=== PATIENT | male | born 1950 | race Caucasian/White ===

== ENCOUNTER 2018-03-02 13:22 | Outpatient (REF) | payer MEDICARE, OTHER, SELFPAY ==
[2018-03-03 10:17] LABS: PSA, Screening 0.7 ng/ml (0-4.5)
== END 2018-03-02 13:42 ==
LOC: NCHCN 13:22
PROVIDERS: PCP Nurse Practitioner Family; Visit Provider Nurse Practitioner Family
DX: R19.7 Diarrhea, unspecified (principal); F52.21 Male erectile disorder; Z12.5 Encounter for screening for malignant neoplasm of prostate
CPT/HCPCS: 84153

== ENCOUNTER → 2018-03-16 09:08 | Outpatient (BNVA) | payer MEDICARE, OTHER, SELFPAY | PROVIDERS: PCP Nurse Practitioner Family; Referring Provider Nurse Practitioner Family; Visit Provider Nurse Practitioner Gerontology | DX: N52.9 Male erectile dysfunction, unspecified (principal); N40.2 Nodular prostate without lower urinary tract symptoms | CPT/HCPCS: 99204 ==

== ENCOUNTER 2018-12-07 10:39 | Outpatient (CLI) | payer MEDICARE, OTHER, SELFPAY ==
--- NOTE | 2018-12-07 10:38 | DI.RAD_ITS ---
SYMPTOMS/DIAGNOSIS: RT SHOULDER PAIN AND WEAKNESS RIGHT SHOULDER: Three views. There are moderate hypertrophic changes at the acromioclavicular joint. The glenohumeral joint is well maintained. The bones are intact and normally mineralized. The soft tissues are unremarkable. 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
== END 2018-12-07 10:59 ==
PROVIDERS: PCP Nurse Practitioner Family; Referring Provider Nurse Practitioner Family; Visit Provider Student in an Organized Health Care Education/Training Program
DX: M25.511 Pain in right shoulder (principal); M89.311 Hypertrophy of bone, right shoulder; M75.101 Unspecified rotator cuff tear or rupture of right shoulder, not specified as traumatic
CPT/HCPCS: 99203; 99214; 73030

== ENCOUNTER 2018-12-19 01:55 | Outpatient (CLI) | payer MEDICARE, OTHER, SELFPAY ==
--- NOTE | 2018-12-19 09:45 | DI.MRI_ITS ---
SYMPTOM/DIAGNOSIS: RT SHOULDER PAIN, WEAKNESS, M25.511, S/P FALL, DECREASED RANGE OF MOTION RIGHT SHOULDER MRI: Comparison is made with plain films dated 12/07/18. Proton density and fat suppressed T 2 axial and coronal and T 1 and fat suppressed T 2 sagittal sequences were performed. There is spurring from the AC joint which appears to mildly impinge on the anterior aspects of the distal supraspinatus tendon. There is a small amount of fluid in the subacromial subdeltoid bursa. There is thickening and high signal in the distal infraspinatus tendon. There is a full thickness tear of the infraspinatus tendon with retraction of approximately 10 mm. There is also thickening of the distal supraspinatus tendon in the mid to posterior portion without definite tear. The subscapularus and teres minor tendons appear intact. No labral defects are identified. There is spurring and subchondral cysts at the greater tuberosity. There is also spurring at the lesser tuberosity. There is a small amount of fluid in the subcoracoid bursa. IMPRESSION: Full thickness tear with retraction of the infraspinatus tendon. Supraspinatus tendinosis.
== END 2018-12-19 02:15 ==
PROVIDERS: PCP Nurse Practitioner Family; Visit Provider Student in an Organized Health Care Education/Training Program
DX: M25.511 Pain in right shoulder (principal); S46.011A Strain of muscle(s) and tendon(s) of the rotator cuff of right shoulder, initial encounter; M75.81 Other shoulder lesions, right shoulder
CPT/HCPCS: 73221

== ENCOUNTER → 2018-12-21 08:48 | Outpatient (BNVA) | payer MEDICARE, OTHER, SELFPAY | PROVIDERS: PCP Nurse Practitioner Family; Referring Provider Nurse Practitioner Family; Visit Provider Student in an Organized Health Care Education/Training Program | DX: S46.011A Strain of muscle(s) and tendon(s) of the rotator cuff of right shoulder, initial encounter (principal); X58.XXXA Exposure to other specified factors, initial encounter | CPT/HCPCS: 99213 ==

== ENCOUNTER 2019-02-16 09:53 | Outpatient (CLI) | payer MEDICARE, OTHER, SELFPAY ==
--- NOTE | 2019-02-16 08:55 | W.PREOPHP ---
Date of service: 02/16/19 Assessment and Plan (1) Right rotator cuff tear: Current visit: No Status: Acute Right arthroscopic rotator cuff repair. Details of surgery were discussed with patient as well as risks and pertinent anatomy. All questions were answered. Qualifiers: Rotator cuff tear extent: unspecified tear extent Rotator cuff tear trauma status: unspecified whether traumatic Qualified Code(s): M75.101 - Unspecified rotator cuff tear or rupture of right shoulder, not specified as traumatic History of Present Illness Chief Complaint: Right shoulder injury Narrative: Alex is a 69-year-old male who comes in today for a preop history and physical for a right rotator cuff repair. He had an injury a few months ago when she fell landing directly on his right shoulder. Since then he has had shoulder pain especially when he reaches away from his body and up overhead. He also has pain at night which keeps him from sleeping. He is a pretty active person, so he came in for evaluation, and after this evaluation by Dr. Trejo it was determined that he had a rotator cuff tear on the right side. He has had an MRI which showed the rotator cuff tear as well as some DJD of the AC joint. He has tried conservative treatment including exercise and anti-inflammatories, but his weakness and pain simply have not gotten any better. At this time Dr. Trejo offers a right rotator cuff repair and distal clavicle excision, and Alex agrees with this plan and is anxious to proceed. Pertinent Surgical Information Alex has had a TIA in the past, but after testing was instructed that he did not have a CVA. Patient denies history of hypertension, CVA, CT, angina, asthma, COPD, renal or liver disorders, hepatitis, bleeding disorders, diabetes, immune or thyroid disorders. No complications from anesthesia. Review of Systems Constitutional Denies fever(s) ENT Denies dizziness and Denies sore throat Cardiovascular Denies chest pain, Denies palpitations and Denies dyspnea Respiratory Denies cough and Denies dyspnea Gastrointestinal Denies abdominal pain, Denies melena, Denies hematochezia, Denies diarrhea, Denies nausea and Denies vomiting Genitourinary Denies hematuria and Denies dysuria Neurologic Denies dizziness Endocrine Denies palpitations [facility] Social History Smoking/Tobacco Use Status: Former Tobacco Use Drug use: Occasionally Meds Home Medications Medication Instructions Recorded Confirmed Type tadalafil 5 mg tablet 5 mg PO ONCE PRN 03/16/18 12/21/18 History Allergies Allergy/AdvReac Type Severity Reaction Status Date / Time No Known Allergies Allergy Verified 02/16/19 09:04 Exam [facility] Head: normocephalic and atraumatic General nose exam: no nasal discharge Throat: uvula midline and no uvular edema Other: soft palate rises symmetrically, no erythema Eyes Conjunctivae: conjunctivae normal Sclera: sclerae normal Pupils: PERRL Resp Effort & Inspection: normal respiratory effort Auscultation: clear to auscultation bilaterally and no wheezes Cardio Rate: regular rate Rhythm: regular rhythm Heart Sounds: S1 normal, S2 normal and no murmurs GI Palpation: soft, no hepatosplenomegaly and nontender Auscultation: normal bowel sounds
== END 2019-02-16 10:13 ==
PROVIDERS: PCP Nurse Practitioner Family; Visit Provider Student in an Organized Health Care Education/Training Program
DX: M75.101 Unspecified rotator cuff tear or rupture of right shoulder, not specified as traumatic (principal); Z01.818 Encounter for other preprocedural examination
CPT/HCPCS: NC

== ENCOUNTER 2019-03-07 06:25 | Day surgery (SDC) | payer MEDICARE, OTHER, SELFPAY ==
[2019-03-07] VITALS (8 sets, daily range): BP systolic 114–147; BP diastolic 58–112; PULSE 52–74; RESP 10–20; TEMP 36–36.6; O2SAT 97–99
[2019-03-07] MEDS: Lactated Ringers 1,000 ML 80 ML IV ×2 (07:00→10:02)
--- NOTE | 2019-03-07 07:11 | PDOC.DSDIS_ITS ---
Discharge Plan Disposition Patient Disposition: HOME Condition: Good Discharge Details Reason For Visit: R RTC Tear Attending Provider: Alex Trejo Primary Care Provider: Mi Batista Home Meds and New Rx's Prescriptions: New acetaminophen 500 mg tablet 1,000 mg PO Q8H PRN (Reason: pain) Qty: 60 RF: 3 ibuprofen 600 mg tablet 600 mg PO TID PRNQty: 60 RF: 3 hydromorphone 2 mg tablet 2 mg PO Q6H PRN (Reason: pain) Qty: 10 RF: 0 Continued tadalafil [Cialis] 5 mg tablet 5 mg PO ONCE PRNRF: 0 Discharge Instructions Stand Alone Forms: Maya Silva w/RCR Referrals: Alex Trejo MD [ [facility] STAFF PHYSICIAN] - Equipment/Supplies: Sling Activity:: Stay in sling except for hygiene and pendulum Remove Dressings/Wound Care:: 72 hours Shower/Bathe:: 72 hours Diet:: As Tolerated Discharge Orders Discharge Orders: Discharge Order (Routine); Ordered 03/07/19 Ordered By: Alex Trejo DS: Diagnosis Discharge Diagnosis (1) Right rotator cuff tear: Status: Acute (2) Arthralgia of right acromioclavicular joint: Status: Acute
[2019-03-07] MEDS: Bupivacaine 0.5% Pres-Free 30 ML VIAL (07:24)
[2019-03-07] MEDS: Bupivacaine LIPOSOME/PF 133 MG/10 ML VIAL IJ (07:24)
[2019-03-07] MEDS: ceFAZolin 2 GM/50 ML BAG IVPB (07:39)
[2019-03-07] MEDS: Bupivacaine 0.25% Pres-Free 30 ML VIAL (09:20)
--- NOTE | 2019-03-08 06:26 | W.PM.OP ---
Date of service: 03/07/19 Time of Service: 10:26 Operative Note DATE OF PROCEDURE: 03/07/19 PRE-OP DIAGNOSIS: Right AC joint arthritis, right rotator cuff tear POST-OP DIAGNOSIS: other (Right AC arthritis, right rotator cuff tear, right biceps tendon tear) PROCEDURE: - Mini-Open Distal Clavicle Excision - Arthroscopic Rotator Cuff Repair - Sub-pectoral biceps tenodesis - Subacromial Debridement with Acromioplasty SURGEON: Alex Trejo SIGNS AND DISPLAYS SALESPERSON: Pradip He ANESTHESIA: GETA and regional ESTIMATED BLOOD LOSS: 0 PATHOLOGY: none sent COMPLICATIONS: None Patient was transported to: PACU Patient's condition: stable Indications: I have seen Alex in clinic for a painful shoulder. Pathology was confirmed based on MRI and exam findings. Nonoperative measures were exhausted but disability and pain persisted. I discussed shoulder arthroscopy and procedures. I reviewed the risks of the procedures to include, but not limited to, bleeding, infection, pain, stiffness, damage to nerves or vessels, recurrence, hardware failure, blood clot. Despite these risks, the patient elected to proceed. Findings: There were signs of arthrosis of the distal clavicle; a 1cm wedge was resected A diagnostic arthroscopy was performed with the following findings: - Glenohumeral Joint: No significant arthritic change appreciated - Labrum: Some fraying seen anteriorly superiorly but no true detachment and no true tear - Cuff: Complete tear of the majority of supraspinatus and infraspinatus. Partial tearing of the upper subscapularis longitudinally without detachment from the tuberosity. - Biceps: Severe tearing from the level of the groove all the way to the anchor of the biceps tendon - Subacromial: Notable inflammatory change with complete rotator cuff tear appreciated. Large anterolateral spur Procedure Description: Alex was greeted in the preoperative holding area where the correct side was identified and marked. The consent was reviewed with the patient and signed. The history and physical was updated. All questions were answered. He was taken back to the PACU for administration of an intrascalene nerve block. He was then taken to the operating room. The patient was placed into the supine position on the operating room table. A general anesthetic was administered. Alex was then positioned in the beach chair position. All bony prominences were well padded. The head was placed in a foam head waiter/waitress in a neutral position. Prophylactic antibiotics in the form of Cefazolin were administered. The right arm/shoulder was then prepped with Chloraprep and draped in a standard fashion with stockinette and shoulder drape. A timeout to confirm correct identity, side and site, procedure, allergies, anesthesia, and medical concerns was performed. The arm was placed into a pneumatic guzmán, SPIDER2. The distal clavicle was approached through a 2 and half centimeter incision within Milan's lines. This was made overlying the AC joint. The skin was incised sharply. The deeper tissues dissected with electrocautery. The clavipectoral fascia was identified and incised longitudinally off of the distal clavicle and onto the acromion. This was reflected subperiosteally to expose the distal clavicle and the AC joint. With adequate exposure a 1 cm bony resection was made using an oscillating saw. This is angled posteriorly to avoid any posterior impingement. Once it was fully resected, it was inspected to make sure it is of adequate width. A rasp was used to smooth the bony edges inferiorly and posteriorly primarily. A small amount of bone wax was placed on the end of the distal clavicle. The wound was thoroughly irrigated. There is no active bleeding. The clavipectoral fascia was then closed with a 0 Vicryl in a watertight fashion. The subcutaneous tissues were then reapproximated with a 2-0 Vicryl. The shoulder arthroscopy was then performed. The glenohumeral joint was injected with 20 cc of normal saline with good flow back. A standard posterior portal was made and the joint was entered atraumatically with a blunt arthroscope. Once inside we had good visualization of the structures of the glenohumeral joint. An anterior portal was established with spinal needle localization. A 6.5 mm cannula was inserted. A probe was then used to perform a diagnostic arthroscopy. There is noted to be no significant cartilage damage of the glenoid humeral joint. The labrum was intact anteriorly and posteriorly with mild fraying. There were no loose bodies in the inferior pouch. The superior rotator cuff was completely torn with a portion of the anterior supra spinatus still attached. The biceps tendon had significant tearing from the level to groove all the way through the anchor. The subscapularis had what appeared to be a longitudinal tear of the very uppermost portion of the subscapularis. It was investigated for multiple angles and multiple arm positions. It did not pull off of the lesser tuberosity nor was there a free edge not attached. The bulk of the subscapularis was still intact and therefore no repair was performed. Using letter cautery, the biceps tendon was detached from its anchor for later tenodesis. Using letter cautery and shaver perform debridement of the frayed labrum as well as the torn rotator cuff for later reattachment. The biceps tenodesis was then performed. With the arm and some slight external rotation abduction pectoralis major tendon was identified. A 2 cm incision was made overlying the insertion to the humerus. Sharp dissection was carried onto the skin. Blunt dissection was carried down to the fascia the biceps musculature. This was entered with a tenotomy scissors. The biceps groove was palpable and the biceps tendon was palpable. It was withdrawn from the wound using Allis clamp and finger dissection. Once the biceps tendon was out of the arm the biceps groove was prepared using a rasp. A Mitek Lupine anchor was inserted into the biceps groove at the level of the pectoralis major insertion. This was tested to make sure had excellent fixation into the bone. Using a free needle I then placed a locking Krak?w stitch and each side of the biceps tendon using one limb from each suture at the level of the muscular tendinous junction and moving proximally. Excess tendon was then cut. Using the free suture limb I then shuttled the tendon down to the prepared surface of the humerus. It laid flat against the humerus. It was at the level of the pectoralis major tendon. The suture limbs were then tied. The wound was irrigated. The subcutaneous tissue was reapproximated with a 2-0 Vicryl. The arthroscope was then inserted into the subacromial space. The 6.5 mm cannula was placed lateral to the CA ligament. 2 lateral portals were established. The anterolateral portal became the working port of the posterior lateral portal became the viewing portal. A complete bursectomy is performed anteriorly, posteriorly, and laterally with electrocautery and shaver. This had excellent exposure of the rotator cuff and the large crescent-shaped tear involving the majority of the supra spinatus and infraspinatus. There was a large anterolateral spur which was addressed after the rotator cuff. Using a shaver I debrided down any remaining bursa and on healthy tissue from the tear. This clearly showed a crescent type tear which was anchored both posteriorly and anteriorly. The undersurface of the torn tendon was also debrided. The footprint was debrided with a shaver to remove any soft tissue and to roughen the bone for bleeding and healing. Using a spinal needle for localization, I placed 2 Medial Row anchors. These were Mitek Healix 4.5 mm anchors. After placing these 2 anchors a total of 4 horizontal mattress sutures were placed within the tendon of the rotator cuff. When these were tightened adequately reduce the rotator cuff tendon down to bone. These were tied with standard knot tying techniques. After they were tied I then placed one suture limb from each suture and 2 Lateral Row anchors. A total of 2 Mitek Healix 4.75 mm knotless anchors were placed laterally to the tuberosity. This created a suture bridge type technique reapproximate the tendon down to the entirety of the footprint. There is excellent reapproximation of the tissue. Suture limbs were cut. There is no exposed footprint. A 5.0 mm je was then inserted from the posterior portal. The anterolateral corner of the acromion was then resected in plane with the posterior slope of the acromion. There was quite a significant spike of the anterolateral acromion. The scope equipment was removed from the shoulder. Excess fluid was evacuated. The portal sites were closed with 3-0 Monocryl. The wounds were dressed with Steri-Strips, 4 x 4's, ABDs, Medipore tape. A sling was applied. The patient tolerated the procedure well and was returned to the Same Day Surgery area in a stable condition suffering no known complication.
== END 2019-03-07 13:09 | disposition home or self-care (01) ==
PROVIDERS: PCP Nurse Practitioner Family; Visit Provider Student in an Organized Health Care Education/Training Program
PROC: (CPT 29827; principal; 2019-03-07 07:30)
PROC: (CPT 23120; 2019-03-07 07:30)
PROC: (CPT 23430; 2019-03-07 07:30)
DX: S46.011A Strain of muscle(s) and tendon(s) of the rotator cuff of right shoulder, initial encounter (principal); S46.211A Strain of muscle, fascia and tendon of other parts of biceps, right arm, initial encounter; M19.011 Primary osteoarthritis, right shoulder; G89.18 Other acute postprocedural pain; M25.511 Pain in right shoulder; W19.XXXA Unspecified fall, initial encounter
CPT/HCPCS: 23430; 29827; 29826; 23120; 76942; J0690; J1100; J1885; J2250; J2405; J3010; L3650; L3670

== ENCOUNTER → 2019-03-20 09:46 | Outpatient (BNVA) | payer MEDICARE, OTHER, SELFPAY | PROVIDERS: PCP Nurse Practitioner Family; Referring Provider Nurse Practitioner Family; Visit Provider Student in an Organized Health Care Education/Training Program | DX: Z47.89 Encounter for other orthopedic aftercare (principal) ==

== ENCOUNTER → 2019-04-17 07:52 | Outpatient (BNVA) | payer MEDICARE, OTHER, SELFPAY | PROVIDERS: PCP Nurse Practitioner Family; Referring Provider Nurse Practitioner Family; Visit Provider Student in an Organized Health Care Education/Training Program | DX: Z47.89 Encounter for other orthopedic aftercare (principal) ==

== ENCOUNTER → 2019-07-13 09:17 | Outpatient (BNVA) | payer MEDICARE, OTHER, SELFPAY | PROVIDERS: PCP Nurse Practitioner Family; Referring Provider Nurse Practitioner Family; Visit Provider Student in an Organized Health Care Education/Training Program | DX: M25.511 Pain in right shoulder (principal); Z47.89 Encounter for other orthopedic aftercare | CPT/HCPCS: 99212; 99213 ==

== ENCOUNTER 2019-08-31 02:56 | Outpatient (CLI) | payer MEDICARE, OTHER, SELFPAY ==
[2019-08-31 13:08] LABS: HCT 44.3 % (40.0-50.0); HGB 14.9 g/dL (13.5-17.5); Mean Corp. HGB Concentration 33.6 g/dL (32.0-36.0); Mean Corpuscular Hemoglobin 30.8 pg (27.0-33.0); Mean Corpuscular Volume 91.5 fL (80-95); Mean Platelet Volume 9.8 fL (8.0-11.0); Platelet Count 293 x1000/uL (130-400); RBC 4.84 m/cumm (4.50-6.00); RBC Distribution Width 12.8 % (11.8-14.1)
[2019-08-31 14:15] LABS: Anion Gap 7.9 mmol/L (3-11); BUN 24 mg/dL (7-18); C-Reactive Protein 0.47 mg/dL (0.0-0.3); CO2 29.1 mmol/L (21.0-32.0); CREATININE 1.16 mg/dL (0.70-1.30); Calcium 9.2 mg/dL (8.5-10.1); Chloride 101 mmol/L (98-107); Glucose 126 mg/dL (74-106); Potassium 4.5 mmol/L (3.5-5.1); Sodium 138 mmol/L (136-145)
== END 2019-08-31 03:16 ==
PROVIDERS: PCP Nurse Practitioner Family; Visit Provider Family Medicine
DX: R05 Cough (principal)
CPT/HCPCS: 36415; 80048; 85027; 86140

== ENCOUNTER 2019-09-01 03:23 | Outpatient (CLI) | payer MEDICARE, OTHER, SELFPAY ==
--- NOTE | 2019-09-01 14:24 | DI.CT_ITS ---
EXAM: CT CHEST W CLINICAL HISTORY: COUGH R05 TECHNIQUE: Post IV contrast COMPARISON: CHEST 2 VIEWS PA,LAT from 10/22/2010 FINDINGS: The heart size is normal. The aorta is normal in diameter. No pleural or pericardial effusions are seen. No mass or adenopathy is seen. No infiltrates are identified. There are increased interstitial markings seen peripherally greatest in the lower lobes. There are a few scattered calcifications. Th e tracheobronchial tree is unremarkable. No suspicious bony abnormalities are identified. The visuali zed portions of the upper abdominal organs are unremarkable. IMPRESSION: Moderate interstitial disease more prominent in the lower lung montaño.
[2019-09-01] MEDS: Omnipaque 350 MG/ML 100 ML BTL 70 ML IJ (14:25)
[2019-09-01] MEDS: Normal Saline - Diluent 50 ML VIAL IV (14:26)
== END 2019-09-01 03:43 ==
PROVIDERS: PCP Nurse Practitioner Family; Visit Provider Family Medicine
DX: R05 Cough (principal); J84.9 Interstitial pulmonary disease, unspecified
CPT/HCPCS: 71260; J3490

== ENCOUNTER 2019-09-11 01:32 | Outpatient (CLI) | payer MEDICARE, OTHER, SELFPAY ==
--- NOTE | 2019-09-11 | PFT_ITS ---
PULMONARY FUNCTION TEST REPORT PATIENT - Alex Sanz DATE OF SERVICE September 11, 2019 REQUESTING PROVIDER Ale Brock M.D. INTERPRETATION OF STUDY Spirometry shows mild obstructive airways disease with no significant bronchodilator response. LUNG VOLUMES - Lung volumes show no evidence of restriction. DIFFUSION CAPACITY- Mildly reduced even when corrected to alveolar volume. AIRWAY RESISTANCE - Normal. IMPRESSION Mild obstructive airways disease with no significant bronchodilator response. This is associated with mild diffusion defect. Clinical correlation recommended. Cathy Jimenez M.D. BISHOP/ DD - 09/14/19
== END 2019-09-11 01:52 ==
PROVIDERS: PCP Nurse Practitioner Family; Visit Provider Family Medicine
DX: R05 Cough (principal); Z57.39 Occupational exposure to other air contaminants; J98.8 Other specified respiratory disorders
CPT/HCPCS: 94060; 94726; 94729

== ENCOUNTER 2019-11-06 01:39 | Outpatient (CLI) | payer MEDICARE, OTHER, SELFPAY ==
--- NOTE | 2019-11-06 14:15 | DI.CT_ITS ---
EXAM: CT CHEST WO CLINICAL HISTORY: INTERSTITIAL LUNG DISEASE, J84.9 TECHNIQUE: COMPARISON: CT CT CHEST W from 09/01/2019 FINDINGS: CT examination of chest was performed without contrast administration. Supine and prone imaging was obtained. Examination compared to prior study of August 31. Previous examination showed predominant ly peripheral and basilar interstitial diffuse radiodensities and showed calcified granulomata of the left lower lobe posteriorly. Findings on today's examination are essentially unchanged. No new interstitial process, no evident p rogression. No change in appearance of the lungs on prone and supine imaging apart from minimal typi mary dependent appearance changes. There is mild diffuse mosaic attenuation, unchanged from the prior study. No new pulmonary mass. No mediastinal or hilar adenopathy. No pleural effusion or pleural-based mas s. Tracheobronchial tree appears intact. IMPRESSION: No change in predominantly peripheral and basilar pulmonary interstitial radiodensities.
== END 2019-11-06 01:59 ==
PROVIDERS: PCP Nurse Practitioner Family; Visit Provider Internal Medicine
DX: J84.89 Other specified interstitial pulmonary diseases (principal)
CPT/HCPCS: 71250

== ENCOUNTER 2019-11-23 03:35 | Outpatient (CLI) | payer MEDICARE, OTHER, SELFPAY ==
[2019-11-23 13:13] LABS: HCT 42.5 % (40.0-50.0); HGB 14.7 g/dL (13.5-17.5); Mean Corp. HGB Concentration 34.6 g/dL (32.0-36.0); Mean Corpuscular Hemoglobin 31.6 pg (27.0-33.0); Mean Corpuscular Volume 91.4 fL (80-95); Mean Platelet Volume 10.5 fL (8.0-11.0); Platelet Count 246 x1000/uL (130-400); RBC 4.65 m/cumm (4.50-6.00); RBC Distribution Width 13.1 % (11.8-14.1); White Blood Cell Count 7.61 k/cumm (4.4-10.8)
[2019-11-23 14:17] LABS: ALT 21 U/L (16-63); AST 20 U/L (15-37); Albumin 3.6 g/dL (3.4-5.0); Alkaline Phosphatase 39 U/L (46-116); Bilirubin, Direct 0.15 mg/dL (0.00-0.20); Bilirubin, Total 0.5 mg/dL (0.2-1.0); Total Protein 6.5 g/dL (6.4-8.2)
== END 2019-11-23 03:55 ==
PROVIDERS: PCP Nurse Practitioner Family; Visit Provider Internal Medicine
DX: J84.9 Interstitial pulmonary disease, unspecified (principal)
CPT/HCPCS: 36415; 80076; 85027

== ENCOUNTER 2020-12-11 15:57 | Outpatient (REF) | payer MEDICARE, OTHER, SELFPAY ==
[2020-12-11 14:09] LABS: ALT 23 U/L (16-63); AST 17 U/L (15-37); Albumin 3.7 g/dL (3.4-5.0); Alkaline Phosphatase 39 U/L (46-116); Anion Gap 8.7 mmol/L (3-11); BUN 20 mg/dL (7-18); Bilirubin, Total 0.6 mg/dL (0.2-1.0); CO2 27.3 mmol/L (21.0-32.0); Calcium 9.1 mg/dL (8.5-10.1); Chloride 106 mmol/L (98-107); Glucose 139 mg/dL (74-106); Potassium 4.2 mmol/L (3.5-5.1); Sodium 142 mmol/L (136-145); Total Protein 6.8 g/dL (6.4-8.2)
== END 2020-12-11 15:58 | disposition home or self-care (01) ==
LOC: NCHCN 15:57
PROVIDERS: PCP Nurse Practitioner Family; Visit Provider Family Medicine
DX: R79.89 Other specified abnormal findings of blood chemistry (principal); Z00.00 Encounter for general adult medical examination without abnormal findings
CPT/HCPCS: 80053

== ENCOUNTER 2021-01-22 16:11 | Outpatient (REF) | payer MEDICARE, OTHER, SELFPAY ==
[2021-01-22 14:49] LABS: Calculated LDL 149 mg/dL (<100); Cholesterol 236 mg/dL (<200); Glucose 109 mg/dL (74-106); HDL Cholesterol 55 mg/dL (40-60); Triglyceride 161 mg/dL (<150)
[2021-01-22 23:58] LABS: PSA, Screening 1.1 ng/mL (0.0-4.5)
== END 2021-01-22 16:12 | disposition home or self-care (01) ==
LOC: NCHCN 16:11
PROVIDERS: PCP Nurse Practitioner Family; Visit Provider Nurse Practitioner Family
DX: E78.9 Disorder of lipoprotein metabolism, unspecified (principal); F52.21 Male erectile disorder; J84.112 Idiopathic pulmonary fibrosis
CPT/HCPCS: 80061; 82947; 84153

== ENCOUNTER → 2021-02-20 10:30 | Outpatient (BNVA) | payer MEDICARE, OTHER, SELFPAY | PROVIDERS: PCP Nurse Practitioner Family; Referring Provider Nurse Practitioner Family; Visit Provider Student in an Organized Health Care Education/Training Program | DX: M65.341 Trigger finger, right ring finger (principal) | CPT/HCPCS: 20550; 99213; J1030 ==

== ENCOUNTER 2021-02-25 04:02 | Outpatient (CLI) | payer MEDICARE, OTHER, SELFPAY ==
--- NOTE | 2021-02-25 | DI.CT_ITS ---
Exam(s) CT CHEST WO EXAM: CT CHEST WO CLINICAL HISTORY: ILD. TECHNIQUE: Imaging protocol: Axial computed tomography images were obtained and coronal and sagittal reformatted images were created and reviewed. COMPARISON: CT CT CHEST WO from 11/06/2019 FINDINGS: Tracheobronchial tree: Patent where visualized. Pulmonary parenchyma: No consolidation or dominant measurable mass. There is again seen predominantly peripheral interstitial disease bilaterally. It does not appear to have significantly progressed si nce the prior examination. Multiple calcified granuloma are again noted. No noncalcified pulmonary nodules are identified. Mediastinum and Parul: No dominant adenopathy or fluid collection. Pleura: No effusion or pneumothorax. Heart: The heart is not dilated. Minimal coronary artery calcification is noted. No pericardial effu diomedes. Aorta: Thoracic aorta non-dilated. Mild atherosclerosis. Upper abdomen: Unremarkable. Lymph nodes: Within normal limits. Soft tissues: Unremarkable. Bones:Within normal limits. IMPRESSION: Stable interstitial lung disease. No acute pulmonary process. RADIATION DOSE DELIVERED: 530.77mGy.cm Total DLP 530.77mGy.cm Total DLP DATA REPOSITORY: All CT scans at this facility are submitted to the National Radiology Data Registry (NRDR) Dose Index Registry (DIR) with the [employer] [place] [employer] (A[employer]). RADIATION OPTIMIZATION: All CT scans at this facility use at least one of these dose optimization te chniques: automated exposure control; mA and/or kV adjustment per patient size (includes targeted exa ms where dose is matched to clinical indication); or iterative reconstruction.
[2021-02-25] MEDS: Albuterol HFA 18 GM 200 PUFF INH IH (09:17)
[2021-02-25] MEDS: Inhaler, Assist Device 1 EACH MC (09:17)
--- NOTE | 2021-02-25 13:12 | PFT_ITS ---
Date of service: 02/25/21 Time of Service: 08:14 Pulmonary Function Test Result Requesting Provider Dr. Cathy Jimenez Interpretation Spirometry: There is no airflow limitation. There is no significant bronch odilator effect. Lung Volumes: Lung volumes are normal. Diffusion Capacity: There is a slight decrease in diffusion. Airway Pressure: Airways resistance is normal. Impression Normal pulmonary function tests with the exception of a slightly decreased diffusion capacity. Note: When compared to pulmonary function testing completed 09/11/2019 the FEV1 and FVC are essentially unchanged, the lung volumes are unchanged, the diffusion capacity is slightly decreased and the airways resistance is slightly increased. Clinical Correlation therefore is recommended.
== END 2021-02-25 04:03 | disposition home or self-care (01) ==
PROVIDERS: PCP Nurse Practitioner Family; Visit Provider Internal Medicine
DX: J84.9 Interstitial pulmonary disease, unspecified (principal)
CPT/HCPCS: 71250; 94060; 94726; 94729

== ENCOUNTER 2021-06-09 03:47 | Outpatient (CLI) | payer MEDICARE, OTHER, SELFPAY ==
[2021-06-09 16:15] LABS: Source Nasal/Nares
[2021-06-09 23:44] LABS: COVID-19 PCR Negative (Negative)
== END 2021-06-09 03:48 | disposition home or self-care (01) ==
LOC: LBO 03:47
PROVIDERS: PCP Nurse Practitioner Family; Visit Provider Student in an Organized Health Care Education/Training Program
DX: Z20.822 Contact with and (suspected) exposure to COVID-19 (principal); Z01.818 Encounter for other preprocedural examination
CPT/HCPCS: 87635

== ENCOUNTER 2021-06-10 11:09 | Day surgery (SDC) | payer MEDICARE, OTHER, SELFPAY ==
[2021-06-10 11:29] VITALS: BP 129/74; PULSE 57; RESP 16; TEMP 37.2; O2SAT 99
--- NOTE | 2021-06-10 12:13 | W.PM.DSUDISC ---
Discharge Plan Disposition Patient Disposition: HOME Condition: Good Discharge Details Reason For Visit: RRF Trigger Release Attending Provider: Alex Trejo Primary Care Provider: Mi Batista Home Meds and New Rx's Prescriptions: New acetaminophen 500 mg tablet 1,000 mg PO TID Qty: 90 RF: 0 ibuprofen 600 mg tablet 600 mg PO TID PRN (Reason: pain) Qty: 90 RF: 0 Continued sildenafil [Viagra] 100 mg tablet 100 mg PO DAILY PRNRF: 0 Ofev 150 mg capsule 150 mg PO Q12H RF: 0 Discontinued acetaminophen 500 mg tablet 1,000 mg PO Q8H PRN (Reason: pain) Qty: 60 RF: 3 ibuprofen 600 mg tablet 600 mg PO TID PRNQty: 60 RF: 3 Discharge Instructions Stand Alone Forms: Maya Recinos Finger Release Activity:: Activity as Tolerated Remove Dressings/Wound Care:: 48 hours Shower/Bathe:: 48 hours Diet:: As Tolerated Discharge Orders Discharge Orders: Discharge Order (Routine); Ordered 06/10/21 Ordered By: Pradip He DS: Diagnosis Discharge Diagnosis (1) Trigger ring finger of right hand: Status: Acute
[2021-06-10] MEDS: Sodium Bicarbonate 50 MEQ/50 ML VIAL (14:15)
[2021-06-10 14:35] VITALS: BP 134/72; PULSE 61; RESP 16; TEMP 36.9; O2SAT 100
--- NOTE | 2021-06-10 21:13 | W.PM.OP ---
Date of service: 06/10/21 Time of Service: 14:14 Operative Note Operative Note DATE OF PROCEDURE: 06/10/21 PRE-OP DIAGNOSIS: Right Ring Finger Trigger Finger POST-OP DIAGNOSIS: same PROCEDURE: Trigger Finger Release - Right Ring Finger SURGEON: Alex Trejo ANESTHESIA TYPE: Local By Surgeon Refer to Anesthesia Record ESTIMATED BLOOD LOSS: 5 PATHOLOGY: none sent TOURNIQUET TIME: 0 COMPLICATIONS: None Patient was transported to: same day Patient's condition: stable Indications: I have seen Alex in clinic for symptoms of a trigger finger. The catching, clicking, locking, and pain limited function. The diagnosis of trigger finger was evident. The symptoms had not responded to conservative measures. I discussed trigger finger release with the patient. I reviewed the risks of the procedure to include, but not limited to, bleeding, infection, pain, stiffness, incomplete release, damage to nerves or vessels, continued catching, recurrence. Despite these risks, the patient elected to proceed. Findings: There was a thin Dupuytren's cord with a nodule blocking complete access to the A1 ondina so this was resected. Then, the tightened A1 ondina was released. The flexor tendons were inspected and the patient was able to move the finger without any catching, clicking, or locking. Procedure Description: Alex was greeted in the preoperative holding area where the correct side was identified and marked. The consent was reviewed with the patient and signed. All questions were answered. He was taken back to the operating room. The patient was placed into the supine position on the operating room table with the right arm on an arm board. All bony prominences were well padded. No prophylactic antibiotics were administered since this was a clean, elective hand surgical case. The right arm was then prepped with Chloraprep and draped in a standard fashion with stockinette and extremity drape. A timeout to confirm correct identity, side and site, procedure, allergies, anesthesia, and medical concerns was performed. The surgical site was marked as a longitudinal incision directly over the A1 ondina of the involved digit. This was confirmed with palpation during finger flexion. This area, overlying the metacarpal head, was then anesthetized with 1% Lidocaine. The patient tolerated this well and once the anesthetic had setup, the procedure began. A longitudinal incision was made through skin only, approximately 1cm. The deep tissues were dissected bluntly. There was a fascial band at this level with an associated nodule which prevented access to the A1 ondina, so I extended the incision proximally with a Sam incision to remove the nodule and cord overlying this region. With this removed, the flexor tendon sheath was visible. Once the A1 ondina and flexor tendons were identified the soft tissue including neurovascular structures were retracted medially and laterally. There were no crossing structures over the A1 ondina. The proximal edge of the ondina was identified and the ondina was incised with tenotomy scissors. There was a release of the tendons once this was fully released. The tendons were then removed from the wound and inspected. Excess synovium was resected. The tendons were then returned and the patient was asked to move the finger into deep flexion and back to extension. There was no recreation of the pre-operative symptoms. The hand was then once more inspected for any A0 ondina or area of possible constriction. The wound was then irrigated and the skin was closed with a 4-0 Nylon. This was dressed with gauze and a Conform dressing. The patient tolerated the procedure well and was returned to the Same Day Surgery area in a stable condition suffering no known complication.
== END 2021-06-10 14:52 | disposition home or self-care (01) ==
PROVIDERS: PCP Nurse Practitioner Family; Visit Provider Student in an Organized Health Care Education/Training Program
PROC: (CPT 26055; principal; 2021-06-10 15:00)
DX: M65.341 Trigger finger, right ring finger (principal)
CPT/HCPCS: 26055

== ENCOUNTER → 2021-06-19 11:35 | Outpatient (BNVA) | payer MEDICARE, SELFPAY | PROVIDERS: PCP Nurse Practitioner Family; Referring Provider Nurse Practitioner Family; Visit Provider Student in an Organized Health Care Education/Training Program | DX: Z47.89 Encounter for other orthopedic aftercare (principal) ==

== ENCOUNTER 2022-09-01 01:31 | Outpatient (CLI) | payer MEDICARE, OTHER, SELFPAY ==
--- NOTE | 2022-09-01 07:45 | DI.CT_ITS ---
Exam(s) CT CHEST WO EXAM: CT CHEST WO CLINICAL HISTORY: f/u LLL nodule,r91.1. TECHNIQUE: Multi planar reconstructions were performed. CONTRAST MATERIAL: None COMPARISON: CT CT CHEST WO from 02/25/2021 FINDINGS: CHEST: LUNGS: Relatively stable bilateral interstitial located peripherally. Calcified granuloma in the lef t lower lobe again noted measuring 6 millimeters. Also smaller calcified granuloma measuring 2-3 mil limeters, also unchanged. No new lung nodules and no pleural effusions. No new findings in the trac hea and mainstem bronchi. MEDIASTINUM: There is no obvious hilar nor mediastinal adenopathy. Visualized thyroid unremarkable.No obvious axillary adenopathy CARDIAC: Heart size is normal. There is no pericardial effusion.Caliber of the thoracic aorta is wit hin normal limits. VISUALIZED UPPER ABDOMEN:No adrenal masses. OSSEOUS: No significant osseous lesions.. IMPRESSION: 1. Stable without significant change compared to prior CT scan of 02/25/2021. 2. Stable interstitial disease. No new findings. No pleural effusions nor intrathoracic adenopathy. RADIATION DOSE DELIVERED: 552.62mGy.cm Total DLP DATA REPOSITORY: All CT scans at this facility are submitted to the National Radiology Data Registry (NRDR) Dose Index Registry (DIR) with the [employer] (ACR). RADIATION OPTIMIZATION: All CT scans at this facility use at least one of these dose optimization te chniques: automated exposure control; mA and/or kV adjustment per patient size (includes targeted exa ms where dose is matched to clinical indication); or iterative reconstruction.
== END 2022-09-01 01:51 ==
PROVIDERS: PCP Nurse Practitioner Family; Visit Provider Student in an Organized Health Care Education/Training Program
DX: R91.1 Solitary pulmonary nodule (principal); J98.4 Other disorders of lung; J84.9 Interstitial pulmonary disease, unspecified
CPT/HCPCS: 71250

== ENCOUNTER 2022-09-08 02:43 | Outpatient (CLI) | payer MEDICARE, OTHER, SELFPAY ==
[2022-09-08] MEDS: Inhaler, Assist Device 1 EACH MC (09:39)
[2022-09-08] MEDS: Albuterol HFA 18 GM 200 PUFF INH IH (09:39)
--- NOTE | 2022-09-16 07:24 | W.PFT ---
Date of service: 09/08/22 Time of Service: 08:09 Pulmonary Function Test Result Requesting Provider Jacob Indications: ILD Interpretation Spirometry: No airflow limitation. No bronchodilator reponse. Lung Volumes: Normal lung volumes Diffusion Capacity: Mild decrease in diffusion Airway Pressure: Normal airways resistance Impression Mildly decreased diffusion which could be related to known history of ILD. Note: When compared to 02/25/21, there has been a slight decline in lung function Clinical Correlation therefore is recommended.
== END 2022-09-08 02:44 | disposition home or self-care (01) ==
LOC: RT 02:43
PROVIDERS: PCP Nurse Practitioner Family; Visit Provider Student in an Organized Health Care Education/Training Program
DX: J84.9 Interstitial pulmonary disease, unspecified (principal)
CPT/HCPCS: 94060; 94726; 94729

== ENCOUNTER 2023-04-15 04:46 | Outpatient (CLI) | payer MEDICARE, OTHER, SELFPAY ==
[2023-04-15 09:07] LABS: Calculated LDL 151 mg/dL (<100); Cholesterol 220 mg/dL (<200); Glucose 107 mg/dL (74-106); HDL Cholesterol 52 mg/dL (40-60); Triglyceride 89 mg/dL (<150)
== END 2023-04-15 04:47 | disposition home or self-care (01) ==
LOC: LBO 04:46
PROVIDERS: PCP Nurse Practitioner Family; Visit Provider Nurse Practitioner Family
DX: Z13.1 Encounter for screening for diabetes mellitus (principal); Z13.220 Encounter for screening for lipoid disorders; E78.9 Disorder of lipoprotein metabolism, unspecified
CPT/HCPCS: 36415; 80061; 82947

== ENCOUNTER 2023-05-24 14:55 | Outpatient (CLI) | payer MEDICARE, OTHER, SELFPAY ==
--- NOTE | 2023-05-24 08:00 | DI.RAD_ITS ---
Exam(s) XR KNEE RT 3V AP,LAT,LEATHA EXAM: XR KNEE RT 3V AP,LAT,LEATHA CLINICAL HISTORY: HISTORY OF R TKA. TECHNIQUE: 2D digital imaging was performed. COMPARISON: CR KNEE 1 OR 2 VIEWS from 08/02/2009 FINDINGS: 3 views Stable satisfactory appearance of the components of the right knee prosthesis. No fracture or loosen ing evident. Again noted is a cephalad pointing osteo chondroma off the distal diaphysis of the femu r, unchanged from images of July 2009.. IMPRESSION: Stable satisfactory appearance. 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 DATA REPOSITORY: RADIATION DOSE DELIVERED:
== END 2023-05-24 14:56 | disposition home or self-care (01) ==
LOC: DIORS 14:55
PROVIDERS: PCP Nurse Practitioner Family; Referring Provider Nurse Practitioner Family; Visit Provider Student in an Organized Health Care Education/Training Program
DX: Z96.651 Presence of right artificial knee joint (principal); M23.91 Unspecified internal derangement of right knee
CPT/HCPCS: 73562; 99214

== ENCOUNTER 2023-06-11 02:50 | Outpatient (CLI) | payer MEDICARE, OTHER, SELFPAY ==
[2023-06-11 08:37] LABS: Calculated LDL 118 mg/dL (<100); Cholesterol 186 mg/dL (<200); Glucose 116 mg/dL (74-106); HDL Cholesterol 51 mg/dL (40-60); Triglyceride 85 mg/dL (<150)
[2023-06-11 08:55] LABS: Hemoglobin A1C 5.8 % (<5.7)
== END 2023-06-11 02:51 | disposition home or self-care (01) ==
LOC: LBO 02:51
PROVIDERS: PCP Nurse Practitioner Family; Visit Provider Nurse Practitioner Family
DX: R73.9 Hyperglycemia, unspecified (principal); E78.70 Disorder of bile acid and cholesterol metabolism, unspecified
CPT/HCPCS: 36415; 80061; 82947; 83036

== ENCOUNTER → 2023-09-16 09:14 | Outpatient (BNVA) | payer MEDICARE, OTHER, SELFPAY | PROVIDERS: PCP Nurse Practitioner Family; Referring Provider Nurse Practitioner Family; Visit Provider Physician Assistant Surgical | DX: J84.9 Interstitial pulmonary disease, unspecified (principal); R91.1 Solitary pulmonary nodule | CPT/HCPCS: 99214 ==

== ENCOUNTER 2023-09-28 19:20 | Outpatient (REF) | payer MEDICARE, OTHER, SELFPAY ==
[2023-09-28 16:49] LABS: HCT 42.2 % (40.0-50.0); HGB 14.4 g/dL (13.5-17.5); MCH 31.4 pg (27.0-33.0); MCHC 34.1 % (32.0-36.0); MCV 92 fL (80-95); MPV 11.7 fL (8.0-11.0); Platelet Count 224 10^3/uL (130-400); RBC 4.59 10^6/uL (4.36-5.78); RDW 12.7 % (11.8-14.1); RDW-SD 42.9 fL
[2023-09-28 17:04] LABS: Anion Gap 8.8 mmol/L (3-11); BUN 26 mg/dL (7-18); CO2 27.2 mmol/L (21.0-32.0); Calcium 9.2 mg/dL (8.5-10.1); Chloride 106 mmol/L (98-107); Estimated GFR 79.97 (mL/min/1.73m2); Glucose 104 mg/dL (74-106); HDL Cholesterol 49 mg/dL (40-60); LDL CHOLESTEROL 111 mg/dL (<100); Potassium 4.5 mmol/L (3.5-5.1); Sodium 142 mmol/L (136-145)
== END 2023-09-28 19:21 | disposition home or self-care (01) ==
LOC: NCHCN 19:20
PROVIDERS: PCP Nurse Practitioner Family; Visit Provider Nurse Practitioner Family
DX: Z01.818 Encounter for other preprocedural examination (principal)
CPT/HCPCS: 80048; 83721; 85027; 83718

== ENCOUNTER → 2024-03-30 07:46 | Outpatient (BNVA) | payer MEDICARE, OTHER, SELFPAY | PROVIDERS: PCP Nurse Practitioner Family; Referring Provider Nurse Practitioner Family; Visit Provider Physician Assistant Surgical | DX: R91.1 Solitary pulmonary nodule (principal); J84.9 Interstitial pulmonary disease, unspecified | CPT/HCPCS: 99214 ==

== ENCOUNTER 2024-04-21 01:59 | Outpatient (CLI) | payer MEDICARE, OTHER, SELFPAY ==
--- OUTSIDE RECORDS SUMMARY | 2024-04-21 02:00 | XMS_ITS | Encounter Summary ---
Author Organization [facility] Address [facility] [place] [address] Care Team Providers Care Dietary Aid Name Role Phone Mi Batista APRN Primary Care Provider [phone] Encounter Details Date Type Department Care Team (Late st Contact Info) Description 05/15/2008 Orders [place] [address] Ben Hernandes MD [facility] [place] [address] Social History Tobacco Use Types Packs/Day Years Used Date Smoking Tobacco: Never Assessed Sex and Gender Information Value Date Recorded Sex Assigned at Not on file Gender Identity Not on file Sexual Orientation Not on file documented as of this encounter Plan of Treatment Not on file documented as of this encounter Procedures Procedure Name Priority Date/Time Associated Diagnosis Comments SURGICAL PATHOLOGY REPORT Routine 05/15/2008 11:07 AM EST documented in this encounter Results * Surgical Pathology Report (05/15/2008 11:07 AM EST) Surgical Pathology Report [id number] ? Location: 3T; [facility]; A The signing pathologist has (i) examined the relevant preparation(s) for the specimen(s) and (ii) rendered or confirmed the diagnosis(es). . ?Pathology Surgical Pathology Final Report Clinical Information Specimen Submitted: A - Bone and Tissue: ??Rt. Knee Clinical History: Not provided Clinical Diagnosis: DJD right knee Gross Description Labeled/Fixativ e: ? Bone and tissue, right knee; fresh. Quantity/Size: ?Multiple, 11.0 x 8.5 x 4.0 cm in aggregate. Tissue Description: ?? Fragments of yellow-white, hard, irregular bone, ?cartilage and soft tissue. ??The articular surfaces ?are variegated, dumont to yellow-white and focally ?granular. ??Eburnation: ? Focally present, up to 1.5 cm. ??Osteophytes: ?Not identified. Sections/Proces sing: ??No sections are submitted. ??aje/SHB Diagnosis Articular bone and soft tissue consistent with osteoarthritis, right knee. ?? Gross surgical pathology examination. CR-0 05/16/08 AJE 05/16/08 Verified by: ? Sha GERMAN, Lavon Schwartz ?Pathologist ?(Electronic Signature) The attending pathologist whose signature appears on this report has reviewed all diagnostic slides and has edited the gross and/or microscopic portion of the report in rendering the final pathologic diagnosis. KYAW GILBERT 05/15/2008 11:0 7 AM EST Ben Hernandes MD PATHOLOGY/CYTOLOGY O JOHN KYAW GILBERT documented in this encounter Visit Diagnoses Not on filedocumented in this encounter Care Teams Dietary Aid Relationship Specialty Start Date End Date Mi Batista APRN PCP - General Family Medicine 08/17/23 documented as of this encounter
--- OUTSIDE RECORDS SUMMARY | 2024-04-21 02:00 | XMS_ITS | Continuity of Care Document ---
Author Organization [facility] Address Unknown Care Team Providers Care Director Of Real Estate Name Role Phone Unknown PCP, Unknown PCP Primary Care Physician Unavailable Encounter Date(s): 03/18/21 - 03/18/21 [facility] [address], [place] [address] - Encounter Diagnosis Idiopathic pulmonary fibrosis(Discharge Diagnosis) - 03/18/21 Discharge Disposition: Home or Self Care Attending Physician: Cathy Jimenez MD Admitting Physician: Cathy Jimenez MD Allergies, Adverse Reactions, Alerts No Known Allergies Assessment and Plan Diagnostic Tests Pending * Hepatic Function Panel 03/18/21 * CBC 03/18/21 Immunizations Given and Recorded Vaccine Date Status Refusal Reason influenza virus vaccine, inactivated 03/07/20 Davy rded pneumococcal 13-valent vaccine 09/07/19 Recorded pneumococcal 23-valent vaccine 11/15/18 Recorded (Tdap) diphth/acel pertuss/tetanus adult 04/02/17 Recorded Medications Flovent HFA 110 mcg/inh inhalation aerosol 2 puff(s), INH, BID, # 12 gm, 0 Refill(s) Start Date: 01/09/21 Status: Ordered Ofev 100 mg oral capsule 100 mg = 1 cap(s), Oral, q12hr, with food, # 60 cap(s), 11 Refill(s), Pharmacy: [id number], 83.8, kg, 02/06/21 15:19:00 EDT, Weight Dosing Start Date: 02/06/21 Status: Ordered Viagra 100 mg oral tablet 100 mg = 1 tab(s), Oral, Daily, 0 Refill(s) Start Date: 01/09/21 Status: Ordered Social History Social History Type Response Sex Male
--- OUTSIDE RECORDS SUMMARY | 2024-04-21 02:00 | XMS_ITS | Encounter Summary ---
Author Organization [facility] Address [facility] [place] [address] Care Team Providers Care Stereo Map Plotter Operator Name Role Phone Zbigniew Lazaro MD Primary Care Provider + Reason for Visit * Reason Onset Date Comments Knee Pain 10/01/2010 Encounter Details Date Type Department Care Team (Late st Contact Info) Description 10/01/2010 Telephone [place] [address] Ben Hernandes MD [facility] [place] [address] Knee Pain Social History Tobacco Use Types Packs/Day Years Used Date Smoking Tobacco: Never Assessed Sex and Gender Information Value Date Recorded Sex Assigned at Not on file Gender Identity Not on file Sexual Orientation Not on file documented as of this encounter Miscellaneous Notes * Telephone Encounter - Ben Hernandes MD - 10/02/2010 9:11 AM EDT . documented in this encounter Plan of Treatment Not on file documented as of this encounter Visit Diagnoses Diagnosis Knee pain- Primary Pain in joint, lower leg documented in this encounter Care Teams Stereo Map Plotter Operator Relationship Specialty Start Date End Date Zbigniew Lazaro MD [address] [place] [address] PCP - General 05/20/10 06/05/15 documented as of this encounter
--- OUTSIDE RECORDS SUMMARY | 2024-04-21 02:00 | XMS_ITS | Encounter Summary ---
Author Organization [facility] Address [facility] [place] [address] Care Team Providers Care Marine Equipment Test Engineer Name Role Phone Mi Batista APRN Primary Care Provider [phone] Encounter Details Date Type Department Care Team (Late st Contact Info) Description 08/17/2023 4:30 PM EST Office Visit Dermatology at [facility] [address] [place] [address] Porfirio Hanna MD [facility] [address] SK (seborrheic keratosis); Multiple benign nevi of upper extremity, lower extremity, and trunk; Chan angioma; Lipoma of face; Dilated pore of Bora; Inflamed seborrheic keratosis Social History Tobacco Use Types Packs/Day Years Used Date Smoking Tobacco: Never Smokeless Tobacco: Never Alcohol Use Standard Drinks/Week Comments Yes 0 (1 standard drink = 0.6 oz pur e alcohol) Sex and Gender Information Value Date Recorded Sex Assigned at Not on file Gender Identity Not on file Sexual Orientation Not on file documented as of this encounter Progress Notes * Porfirio Hanna MD - 08/17/2023 4:30 PM EST Images from the original note were not included. DEPARTMENT OF DERMATOLOGY Medical Dermatology Clinic Provider: Porfirio Hanna MD Patient's preferred name Carlos Preferred contact method for results [x]Phone []myD-H []Letter Detailed phone message OK? Y Are there any other people with whom we may discuss your care? 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 Patient returns to clinic today for a fullskin exam with the following concerns: -Lesion on the left jaw that is not new. Growing and sometimes itchy. Last visit at Dermatology: 10/13/2021 Medications: Reviewed in eD-H Allergies: Reviewed in eD-H Skin Examination: Full skin examination: Patient asked to undress to their comfort level. Verbalized that the provider's preference is that patient remove all clothing and that the provider will not examine areas patient elects to keep covered. Examination of the scalp, hair, head, face, ears, neck, chest, axillae, abdomen, back, buttocks, and upper and lower extremities was normal with the exception of the findings below. Genitalia not examined. Assessment/Plan Inflamed Seborrheic Keratoses - Inflamed, stuck on, waxy papule on the left preauricular x1. - Discussed benign nature of lesion(s) and provided reassurance. - Due to irritation present on today's exam and history of symptoms, discussed removal with cryotherapy. - Patient elects to proceed with cryotherapy today. Procedure: Destruction of lesion(s) with cryotherapy (LN2). Location(s): As noted above Number: 1 Discussed procedure and expectations including risks and benefits. Verbal consent obtained. Treatedwith LN2. There were no complications; Patient tolerated the procedure well. Post-procedure expectations and wound care were reviewed. Seborrheic Keratoses - Stuck on, waxy papules on the trunk and extremities. - Discussed benign nature of lesions and provided reassurance. No treatment necessary at this time. Chan Angiomas - Multiple bright red, well-demarcated papules on the trunk and extremities. - Discussed benign nature of lesions and provided reassurance. No treatment necessary at this time. Benign Nevi - Scattered medium brown, evenly pigmented macules and papules on the trunk and extremities with reassuring pigment pattern on dermoscopy. - Discussed benign nature of lesions and provided reassurance. Will continue to monitor. Dilated Pore of Bora - Dilated pore with central keratin core on the left shinto Lipoma - 1 cm rubbery, subcutaneous nodule on the right forehead. - Discussed etiology and benign nature of lesion and provided reassurance. No treatment necessary at this time. - Discussed benign nature of lesion and provided reassurance. RTC: July 2024 for FSE []Note routed to senior adults director [x]Recall placed in scheduling system []Appointment scheduled at checkout Scribe attestation: Haylee Ely CMA has performed the documentation for this encounter inthe presence of and acting as a scribe for Porfirio Hanna MD. I performed the above scribed service and agree with the accuracy of the documentation in this encounter. Reviewed and signed by: Porfirio Hanna MD Dermatology [facility] documented in this encounter Plan of Treatment Not on file documented as of this encounter Visit Diagnoses Diagnosis SK (seborrheic keratosis) Other seborrheic keratosis Multiple benign nevi of upper extremity, lower extremity, and trunk Chan angioma Nevus, non-neoplastic Lipoma of face Lipoma of skin and subcutaneous tissue of face Dilated pore of Bora Inflamed seborrheic keratosis documented in this encounter Care Teams Marine Equipment Test Engineer Relationship Specialty Start Date End Date Mi Batista APRN PCP - General Family Medicine 08/17/23 documented as of this encounter
--- OUTSIDE RECORDS SUMMARY | 2024-04-21 02:00 | XMS_ITS | Clinical Summary ---
Author Organization [facility] Address [facility] [place] [address] Care Team Providers Care Managing Consultant Clinical Professor Name Role Phone Mi Batista APRN Primary Care Provider [phone] Allergies No known active allergies Medications Medication Sig Dispensed Refills Start Date End Date Status aspirin 325 mg Tablet Take 325 mg by mouth daily. Active Active Problems Problem Noted Date Diagnosed Date S/P Right TKR (total knee re placement) 05/15/08 using cement 10/17/2010 Immunizations Name Administration Dates Next Due Influenza Vaccine, Whole 04/19/2008 Social History Tobacco Use Types Packs/Day Years Used Date Smoking Tobacco: Never Smokeless Tobacco: Never Alcohol Use Standard Drinks/Week Comments Yes 0 (1 standard drink = 0.6 oz pur e alcohol) Sex and Gender Information Value Date Recorded Sex Assigned at Not on file Gender Identity Not on file Sexual Orientation Not on file Last Filed Vital Signs Vital Sign Reading Time Taken Comments Blood Pressure 138/81 06/06/2015 12:00 PM EST Pulse 60 06/06/2015 12:00 PM EST Temperature - - Respiratory Rate - - Oxygen Saturation - - Inhaled Oxygen Concentration - - Weight 81.6 kg (180 lb) 06/06/2015 12:00 PM EST Height 185.4 cm (6' 1) 06/06/2015 12:00 PM EST Body Mass Index 23.75 06/06/2015 12:00 PM EST Plan of Treatment Health Maintenance Due Date Last Done Comments CT Colonography 1951 Colonoscopy 1950 Colorectal Cancer Screening 1950 FIT DNA 1950 FIT 1950 Sigmoidoscopy (10 year) with FIT yearly 1950 Sigmoidoscopy 1950 Hepatitis C Screening 1969 Lipid Screening 1969 Tetanus/Diphtheria/Pertussis Vaccines (1 - Tdap) 02/05 Zoster vaccine (1 of 2) 2001 Advance Directive 2006 Pneumoccocal Vaccine: 65+ (1 of 1 - PCV) 02/06/2016 Covid-19 Vaccine (1 - season) 2024 Influenza (Flu) vaccine (1 o f 1 - Influenza standard series) 02/27/2024 04/19/2008 Care Teams Managing Consultant Clinical Professor Relationship Specialty Start Date End Date Mi Batista APRN PCP - General Family Medicine 08/17/23
--- OUTSIDE RECORDS SUMMARY | 2024-04-21 02:00 | XMS_ITS | Encounter Summary ---
Author Organization [facility] Address [facility] [place] [address] Care Team Providers Care Open Hearth Helper Name Role Phone Zbigniew Lazaro MD Primary Care Provider + Encounter Details Date Type Department Care Team (Late st Contact Info) Description 05/31/2015 - 05/31/2015 11:59 PM EST Hospital Encounter Radiology Library [place] [facility] [place] [address] [facility] Dis[facility] Disposition: Home Social History Tobacco Use Types Packs/Day Years Used Date Smoking Tobacco: Never Sex and Gender Information Value Date Recorded Sex Assigned at Not on file Gender Identity Not on file Sexual Orientation Not on file documented as of this encounter Medications at Time of Discharge Medication Sig Dispensed Refills Start Date End Date atorvastatin (LIPITOR) 20 mg Tablet Take 20 mg by mouth daily. 0 04/17/2015 06/06/2015 ibuprofen (ADVIL;MOTRIN) 800 mg tablet 11/04/2009 06/06/2015 documented as of this encounter Plan of Treatment Not on file documented as of this encounter Procedures Procedure Name Priority Date/Time Associated Diagnosis Comments FILM LIBRARY STORAGE ONLY MR HEAD Routine 05/31/2015 12:00 AM EST Pain documented in this encounter Results * Film Library- Storage only MR Head (05/31/2015 12:00 AM EST) Narrative [facility] - 06/06/2015 12:41 PM EST See PACS for result report. Dr Hu [facility] FILM LIBRARY ORD ERABLES [place], [place] documented in this encounter Visit Diagnoses Diagnosis Pain Generalized pain documented in this encounter Care Teams Open Hearth Helper Relationship Specialty Start Date End Date Zbigniew Lazaro MD [address] [facility] [place] [address] PCP - General 05/20/10 06/05/15 documented as of this encounter
--- OUTSIDE RECORDS SUMMARY | 2024-04-21 02:00 | XMS_ITS | Encounter Summary ---
[place] [address] Care Team Providers Care Restaurant Host Name Role Phone Mi Batista APRN Primary Care Provider [phone] Encounter Details Date Type Department Care Team (Late st Contact Info) Description 03/06/2019 [place] [address] Delon French RN Social History Tobacco Use Types Packs/Day Years [...] encounter Miscellaneous Notes * Telephone Encounter - Delon French RN - 03/06/2019 12:03 PM EDT Patient calls to ask what medication he was on when he had his knee replacement with Dr. Hernandes. Records reviewed from 2007 and relayed that on his discharge he had been prescribed Dilaudid 2 mg. He was thankful of the research, as he will surgery on his shoulder and he wanted the same medication, due to inability to tolerate other medications due to nausea. documented in this encounter Plan of Treatment Not on file documented as of this encounter Visit Diagnoses Not on filedocumented in this encounter Care Teams Restaurant Host Relationship Specialty Start Date End Date Mi Batista APRN PCP - General Family Medicine 02/25/18 08/16/23 documented as of this encounter
--- OUTSIDE RECORDS SUMMARY | 2024-04-21 02:00 | XMS_ITS | Encounter Summary ---
Author Organization [facility] Address [facility] [place] [address] Care Team Providers Care Reconciliation Specialist Name Role Phone Mi Batista APRN Primary Care Provider [phone] Reason for Visit * Reason Comments Skin Check Encounter Details Date Type Department Care Team ([facility] Contact Info) Description 02/25/2018 8:45 AM EDT Office Visit Dermatology at [facility] [address] [place] [address] Oz Alejandro MD [facility] [address] [place] [address] Benign nevus Social History Tobacco Use Types Packs/Day Years Used Date Smoking Tobacco: Never Smokeless Tobacco: Never Alcohol Use Standard Drinks/Week Comments Yes 0 (1 standard drink = 0.6 oz pur e alcohol) Sex and Gender Information Value Date Recorded Sex Assigned at Not on file Gender Identity Not on file Sexual Orientation Not on file documented as of this encounter Progress Notes * Oz Alejandro MD - 02/25/2018 8:45 AM EDT Images from the original note were not included. DERMATOLOGY AT [facility] Dermatology At [facility] [address] [facility] [address] FOLLOW-UP Date of service: 02/25/2018 Alex Sanz : 1950 Provider: Oz Alejandro MD SKIN HISTORY: Actinic Keratosis No known h/o melanoma No known h/o non-melanoma skin cancer No known h/o eczema, atopy No known h/o psoriasis, or other skin disease Wears a hat in the sun sometimes (not regularly) Loves being in the sun & outdoors Chief Complaint: Full Skin Exam History of Present Illness Alex Sanz is a 68 y.o. year old male. This is a new patient to me, self- referred. They are here today with his for full skin exam. He has no areas of concern today. Medical History: Artificial Joints - Yes: [x] No: [] Problem List Patient Active Problem List Diagnosis Code ??? 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 Medications: Current Outpatient Prescriptions Medication Sig Dispense Refill ??? aspirin 325 mg Tablet Take 325 mg by mouth daily. No current facility-administered medications for this visit. 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 Skin: The patient was asked to disrobe to the level of their comfort. Full skin examination of the scalp, hair, head, face, neck, back, chest, abdomen, right and left upper extremities, right and left lower extremities and buttocks was normal with the exception of the findings listed below. Significant skin findings: ?? Multiple, 0.3-0.5cm, medium-brown, evenly-pigmented macules and papules - majority on the back. No pigmented lesions suspicious for melanoma. Assessment and Plan: Benign Appearing Nevi Benign. No treatment necessary. ?? Reassured about benign nature and natural history. ?? Reviewed various types of skin cancer and ABCDEs of melanoma. RTC February 2020 for 2 year full skin exam, or sooner as needed. (Coord w/ 's appt) Note initiated and routed to physician for review and change by: Belia Gutierrez LPN I, Melissa Mittal, have performed the documentation for this encounter in the presence of and acting as a scribe for OZ ALEJANDRO MD. I performed the services which were documented by the scribe, and I agree with the accuracy of the documentation in this encounter. OZ ALEJANDRO MD. Oz Alejandro MD Section of Dermatology [facility] documented in this encounter Plan of Treatment Not on file documented as of this encounter Visit Diagnoses Diagnosis Benign nevus Benign neoplasm of skin, site unspecified documented in this encounter Care Teams Reconciliation Specialist Relationship Specialty Start Date End Date Mi Batista APRN PCP - General Family Medicine 02/25/18 08/16/23 documented as of this encounter
--- OUTSIDE RECORDS SUMMARY | 2024-04-21 02:00 | XMS_ITS | Encounter Summary ---
Author Organization [facility] Address [facility] [place] [address] Care Team Providers Care Equipment Maintenance Superintendent Name Role Phone Mi Batista APRN Primary Care Provider [phone] Encounter Details Date Type Department Care Team (Latest Contact Info) Description 08/17/2023 Travel Social History Tobacco Use Types Packs/Day Years [...] on filedocumented in this encounter Care Teams Equipment Maintenance Superintendent Relationship Specialty Start Date End Date Mi Batista APRN PCP - General Family Medicine 08/17/23 documented as of this encounter
--- OUTSIDE RECORDS SUMMARY | 2024-04-21 02:00 | XMS_ITS | Encounter Summary ---
Author Organization [facility] Address [facility] [place] [address] Care Team Providers Care Budget Examiner Name Role Phone Papito Wood DO Primary Care Provider Reason for Visit * Consultation (LINA) - Closed Specialty Diagnoses / Procedures Referred By Arabella cates Referred To Contact Neurology Diagnoses tia Papito Wood DO [address] [place] [address] [facility] [address] [place] [address] Referral ID Status Reason Start Date Expiration Date V isits Requested Visits Authorized [id number] Closed Consult, Test & Treat Connection [facility] 04/19/2015 04/18/2016 1 1 Encounter Details Date Type Department Care Team (Late st Contact Info) Description 06/06/2015 12:00 PM EST Office [place] [address] Kain An MD [facility] [place] [address] Amnesia, global, transient Social History Tobacco Use Types Packs/Day Years Used Date Smoking Tobacco: Never Smokeless Tobacco: Never Alcohol Use Standard Drinks/Week Comments Yes 0 (1 standard drink = 0.6 oz pur e alcohol) Sex and Gender Information Value Date Recorded Sex Assigned at Not on file Gender Identity Not on file Sexual Orientation Not on file documented as of this encounter Last Filed Vital Signs Vital Sign Reading [...] Mass Index 23.75 06/06/2015 12:00 PM EST documented in this encounter Progress Notes * Kain An MD - 06/06/2015 12:20 PM EST Cerebrovascular Disease and Stroke Program Department of Neurology [place] [id number] t: [phone] / f: [phone] Date of Appointment: 06/06/2015 Patient: Alex Umanzor Yvon PCP: PAPITO WOOD DO Consultation Requested By: Vee Lazaro Md [address] [place] [address] This 65 y.o. male is evaluated because of an episode of confusion in March. [place]. March went to [facility] with confusion. talked with him before breakfast x 2 on phone She had seen him the day before. Was going to coordiante a meeting for a piece of equip,ent from someone in [place]. Then After breakfast and away and couldn't figure out the next move. Called and later spoke to her again and she said we already had this converstation. Neighbors called ambulance and normal after ambulance arrived so neighbors brought him to [facility]. said he was confused about where she was and again same questions about where she was. The night before he had a couple of beers and more mixed drinks and a little buzz that night. He was not intoxicated though in the morning. Had MRI after a delay since he looked into the prices and found it was $9,000 at [facility] vs $2,500 at [facility]. History reviewed. No pertinent past medical history. Patient Active Problem List Diagnosis Code ??? 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 aspirin 325 mg Tablet Take 325 mg by mouth daily. History Social History ??? Marital Status: Spouse Name: N/A Number of Children: N/A ??? Years of Education: N/A Social History Main Topics ??? Smoking status: Never Smoker ??? Smokeless tobacco: Never Used ??? Alcohol Use: Yes ??? Drug Use: No ??? Sexual Activity: None Comment: deferred Other Topics Concern ??? 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 Enjoys bicycling and gardening. Never smokes, alcoholdaily, at least 2 bevs. History reviewed. No pertinent family history. ROS: [naik: X=present and if no X, was negative] headache glaucoma transient loss of vision double vision dizziness difficulty speaking weakness of arm/leg numbness of arm/leg unsteadiness walking falls seizures difficulty swallowing X memory loss X ringing in ears snoring incontinence chest pain palpitations trouble breathing trouble lying flat nausea/vomiting indigestion abdominal pain rashes birthmarks easy bruising miscarriages blood clots in legs (DVT) poor circulation erectile dysfunction depression anxiety joint pains fatigue Exam: Filed Vitals: 06/06/15 1200 BP: 138/81 Pulse: 60 General: Well appearing patient, nontoxic. Sclerae anicteric. No cervical adenopathy, thyromegaly or carotid/vertebral bruits. No audible wheezing. No edema lower extremities. Heart regular, no murmur. Radial pulses palpable and symmetric. Neuro: MS--alert, oriented; speech fluent/articulate, no dysarthria, paraphasic errors or vee aphasia; naming, repetition, recall intact. CN--PERRL w/o anisocoria; no ptosis; EOMI; visual montaño intact to confrontation; facial sensation;facial smile/grimace intact; hearing intact to finger rub; tongue/palate midline. Motor--No pronator drift; bulk and tone normal. del bic tri br WE WF FF IP Qu BF TA EHL L: 5 5 5 5 5 5 5 5 5 5 5 5 R: 5 5 5 5 5 5 5 5 5 5 5 5 Sens--no sensory loss limbs noted Coord--no limb ataxia Gait--walks independently Data and records reviewed: MRI obtained after the appt started and showed only a few small T2 hyperintensities in the hemispheric white matter. 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 We discussed how I think aspirin 81mg a day is reasonable but not clearly indicated. No other testing recommended. ??? Return to clinic as needed. documented in this encounter Plan of Treatment Not on file documented as of this encounter Visit Diagnoses Diagnosis Amnesia, global, transient Transient global amnesia documented in this encounter Care Teams Budget Examiner Relationship Specialty Start Date End Date Papito Wood DO [address] [place] [address] PCP - General Family Medicine 06/06/15 02/24/18 documented as of this encounter
--- OUTSIDE RECORDS SUMMARY | 2024-04-21 02:00 | XMS_ITS | Referral Summary ---
Author Organization [facility] Address [address] [place] [address] Care Team Providers Care Flute Grinder Name Role Phone Unavailable Primary Care Provider Unavailabl e Social History Tobacco Use Types Packs/Day Years Used Date Smoking Tobacco: Never Assessed Sex and Gender Information Value Date Recorded Sex Assigned at Not on file Gender Identity Not on file Sexual Orientation Not on file Plan of Treatment Not on file
--- OUTSIDE RECORDS SUMMARY | 2024-04-21 02:00 | XMS_ITS | Clinical Summary ---
Author Organization [facility] Address [address] [place] [address] Care Team Providers Care Laboratory Equipment Cleaner Name Role Phone Unavailable Primary Care Provider Unavailabl e Social History Tobacco Use Types Packs/Day Years Used Date Smoking Tobacco: Never Assessed Sex and Gender Information Value Date Recorded Sex Assigned at Not on file Gender Identity Not on file Sexual Orientation Not on file Plan of Treatment Health Maintenance Due Date Last Done Comments Hepatitis C Screen 1950 RSV Immunization ( o r 60+ Years) (1 - 1-dose 60+ series) 2011 Fall Risk Screening 02/06/2016 COVID-19 Vaccine (2022-24 season) 2023
--- OUTSIDE RECORDS SUMMARY | 2024-04-21 02:00 | XMS_ITS | Encounter Summary ---
Author Organization [facility] Address [facility] [place] [address] Care Team Providers Care Pattern Repair Person Name Role Phone Mi Batista APRN Primary Care Provider [phone] Reason for Visit * Reason Comments Skin Check full skin exam Encounter Details Date Type Department Care Team (Late st Contact Info) Description 06/12/2019 1:45 PM EST Office Visit Dermatology at [facility] [address] [place] [address] Oz Alejandro MD [facility] [address] [place] [address] Multiple benign nevi; Lentigines; Eczema, unspecified type Social History Tobacco Use Types Packs/Day Years [...] Progress Notes * Oz Alejandro MD - 06/12/2019 1:45 PM EST Images from the original note were not included. DERMATOLOGY AT [facility] Dermatology At [facility] [address] [facility] [address] FOLLOW-UP Date of service: 06/12/2019 Alex Sanz : 1950 Provider: Oz Alejandro MD SKIN HISTORY: Actinic Keratosis No known h/o??melanoma No known h/o non-melanoma skin cancer No known h/o eczema, atopy?? No known h/o psoriasis, or other skin disease Wears a hat in the sun sometimes (not regularly) Loves being in the sun & outdoors Chief Complaint: Full skin exam History of Present Illness Alex Sanz is a 69 y.o. male. Established patient, last seen by myself on 02/25/18. Here today for a full skin exam. Pt denies any other area of concern at this time. Reports that he has been in good health. Recovering from Bronchitis ~ 3 weeks ago. Also states thathe had his right shoulder replaced 3 months ago. - notes a rash on his left forearm, which recently developed. Perhaps from carrying a box. 15 - 20 years ago: had some biopsies on his back. Preferred pharmacy: [facility] on [address] [place] [address], now [facility]? Medical History Artificial Joints - Yes: [x] No: [] Allergies Patient has no known allergies. Medications Current Outpatient Medications Medication Sig Dispense Refill ??? aspirin 325 mg Tablet Take 325 mg by mouth daily. No current facility-administered medications for this visit. Family History Father h/o non-melanoma skin cancer (nose - in his late 80s/early 90s) No known h/o eczema, atopy?? No known h/o psoriasis, or other skin disease ?? 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 Type of exam: The patient was asked to disrobe to the level of their comfort. Full skin examination of the scalp, hair, head, face, neck, back, chest, abdomen, right and left upper extremities, right and left lower extremities and buttocks was normal with the exception of the findings listed below. Genitalia examined with patient consent. Significant skin findings: ?? Trunk and extremities: Multiple, 0.3-0.5cm, medium-brown, evenly-pigmented macules and papules. No pigmented lesions suspicious for melanoma. ?? Sun exposed areas: 0.3-0.6cm light-brown evenly pigmented, well-demarcated macules. ?? Diffuse xerosis on bilateral lower extremities ASSESSMENT/PLAN: Benign Appearing Nevi - Benign. No treatment necessary. - Reassured about benign nature and natural history. Solar Lentigines - Benign. No treatment necessary. - Reassured about benign nature and natural history. Eczema- mild just above the left antecubital area - If bothersome, recommend patient apply OTC hydrocortisone 1% cream BID - Encouraged patient to moisturize these areas daily. RTC 2 years for a full skin exam or sooner as needed. Reminder placed in scheduling system. Note initiated and routed to physician for review and change by: Edita Holbrook, TATA I, Andrew Espinoza, have performed the documentation for this encounter in the presence of and acting as a scribe for OZ ALEJANDRO MD. I performed the services which were documented by the scribe, and I agree with the accuracy of the documentation in this encounter. OZ ALEJANDRO MD. Oz Alejandro MD Section of Dermatology [facility] documented in this encounter Plan of Treatment Not on file documented as of this encounter Visit Diagnoses Diagnosis Multiple benign nevi Benign neoplasm of skin, site unspecified Lentigines Other dyschromia Eczema, unspecified type documented in this encounter Care Teams Pattern Repair Person Relationship Specialty Start Date End Date Mi Batista APRN PCP - General Family Medicine 02/25/18 08/16/23 documented as of this encounter
--- OUTSIDE RECORDS SUMMARY | 2024-04-21 02:00 | XMS_ITS | Encounter Summary ---
Author Organization [facility] [place] [address] Care Team Providers Care Radioactivity Technician Name Role Phone Mi Batista APRN Primary Care Provider [phone] Encounter Details Date Type Department Care Team (Late st Contact Info) Description 04/29/2021 8:00 AM EDT Office Visit Dermatology at [facility] [address] [place] [address] Mikhail Mclaughlin MD [address] [facility] [place] [address] Multiple benign nevi of upper extremity, lower extremity, and trunk; Chan angioma; Seborrheic keratosis; Lipoma of face; Lentigines; Subungual hematoma of toe of left foot, subsequent encounter; Xerosis cutis Social History Tobacco Use Types Packs/Day Years Used Date Smoking Tobacco: Never Smokeless Tobacco: Never Alcohol Use Standard Drinks/Week Comments Yes 0 (1 standard drink = 0.6 oz pur e alcohol) Sex and Gender Information Value Date Recorded Sex Assigned at Not on file Gender Identity Not on file Sexual Orientation Not on file documented as of this encounter Progress Notes * Mikhail Mclaughlin MD - 04/29/2021 8:00 AM EDT Images from the original note were not included. 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 and here for the following: ??? No specific lesions that are concerning. No spots that are changing colors, itching, or bleeding. ??? Requesting skin cancer screening Medications: Reviewed in eD-H Allergies: Reviewed in eD-H Skin Examination Standby: SUZANNE Schroeder Well developed, well-nourished in no apparent distress, alert and oriented to time, person, place and situation. Patient was asked to disrobe to the level of comfort. Examination of the skin of the head - including the scalp, face, ears, eyelids, nose, lips, tongue,oral/conjunctival mucosa - neck, chest, abdomen, back, axillae, buttocks, pubic area, upper and lower extremities, including the nail plates, significant for the following. Exam Findings/Assessment/Plan Nevi Well-demarcated, round or oval, dumont or brown macules and papules with benign morphology on the head, neck, trunk, right axilla, buttocks area and extremities. Morphology reassuring for benign nevi. Counseled: Nevi and risks for melanoma arising in a nevus. Recommend regular self-examinations. Answered all questions. Reviewed ABCDEs of melanoma, as below. ??? Return to clinic as needed for changes in color, size, shape or thickness or should bleeding orother symptoms occur. Patient agrees to plan. Chan Angiomas Chan red papules on the trunk. Counseled: chan angiomas. Benign. No treatment necessary unless symptoms develop. Treatment considered cosmetic and [id number]. Treatment options, including but not limited to electrocautery, discussed. Handout given. Seborrheic Keratoses Scattered, stuck-on, well-demarcated, dumont or brown, waxy or warty papules c/w SKs on the head, trunk, axillae and extremities Benign. No treatment necessary. Counseled: SKs, benign, treatment options for symptomatic lesions. Answered all questions. Handout given. Lipoma, Right Upper Forehead Mobile approximately 1 cm rubbery nodule on the right upper forehead. Benign. Counseled: benign fatty growths of unknown etiology with occasional sympomatic subtypes and very rare malignant variants. Diagnostic confirmation with biopsy available but not necessary. Treatment isrecommended only if symptoms, such as pain, or great size that impacts the patient develop. Treatment includes excision and risks scar, infection, bleeding, cosmetic defects and recurrence. Answered all questions. Patient declines treatment. Lentigines Multiple, uniformly dumont, slightly irregular, polygonal macules c/w lentigos on sun-exposed areas ofskin Benign. Counseled: lentigines, sun damage and spontaneous development, rare risk of lentigo maligna (melanoma arising in a lentigo), sun protection, no treatment necessary but discussed cosmetic options, including topical bleaching agents, as well as chemical peels and lasers. Answered all questions. Handout given. Subungual Hematoma, Left Big Toenail Dark purple globules on the distal half of the left big toenail. Trauma, per patient. No treatment necessary. Xerosis Dry xerotic scale on the back and extremities Counseled: dry skin. Recommend moisturization with moisturizer of choice; consider amlactin or lachydrin. Patient Counseled [Skin Cancer] No personal history of skin cancer. However, extensive past and continuing sun exposure. Counseled: recommend sun protection, regular self skin exams, provider skin exams every 12-24 months, and the ABCDEs of melanoma/NMSC. Answered all questions. Handouts on how to do a self-exam, skin cancers and sun protection/recommended OTC sunscreens given to the patient. Joint decision for skin cancer screening in 24 months. ?? Regular full body self examinations and return to clinic for new suspicious lesions or if changes/symptoms in existing lesions develop. Follow-up: 24 months for FSE. Return sooner as needed for suspicious lesion, new or worsening dermatitis. [x] Recall placed [] Forwarded to controller coal or ore [] Patient scheduled before exiting Scribe attestation: SUZANNE Schroeder has performed the documentation for this encounter in the presence of and acting as a scribe for MD PAOLA Correa. I performed the above scribed service and agree with the accuracy of the documentation in this encounter. Reviewed and signed by: MD PAOLA Correa Dermatology [facility] documented in this encounter Plan of Treatment Not on file documented as of this encounter Visit Diagnoses Diagnosis Multiple benign nevi of upper extremity, lower extremity, and trunk Chan angioma Nevus, non-neoplastic Seborrheic keratosis Other seborrheic keratosis Lipoma of face Lipoma of skin and subcutaneous tissue of face Lentigines Other dyschromia Subungual hematoma of toe of left foot, subsequent encounter Xerosis cutis Other specified disease of sebaceous glands documented in this encounter Care Teams Radioactivity Technician Relationship Specialty Start Date End Date Mi Batista APRN PCP - General Family Medicine 02/25/18 08/16/23 documented as of this encounter
--- OUTSIDE RECORDS SUMMARY | 2024-04-21 02:00 | XMS_ITS | Encounter Summary ---
Author Organization [facility] Address [facility] [place] [address] Care Team Providers Care Drafter Refrigeration Name Role Phone Zbigniew Lazaro MD Primary Care Provider + Encounter Details Date Type Department Care Team (Late st Contact Info) Description 04/12/2015 - 04/12/2015 11:59 PM EDT Hospital Encounter Radiology Library at [facility] [place] [address] [address] Mayte Willis Pain Discharge Disposition: Home Social History Tobacco Use Types Packs/Day Years Used Date Smoking Tobacco: Never Sex and Gender Information Value Date Recorded Sex Assigned at Not on file Gender Identity Not on file Sexual Orientation Not on file documented as of this encounter Medications at Time of Discharge Medication Sig Dispensed Refills Start Date End Date ibuprofen (ADVIL;MOTRIN) 800 mg tablet 06/06/2015 documented as of this encounter Plan of Treatment Not on file documented as of this encounter Procedures Procedure Name Priority Date/Time Associated Diagnosis Comments FILM LIBRARY STORAGE ONLY CT HEAD Routine 04/12/2015 12:00 AM EDT Pain documented in this encounter Results * Film Library- Storage Only CT Head (04/12/2015 12:00 AM EDT) Narrative [facility] - 04/25/2015 2:31 PM EDT See PACS for result report. Dr Mayte Willis IMG FILM LIBRARY ORD ERABLES [facility] [place], [place] documented in this encounter Visit Diagnoses Diagnosis Pain Generalized pain documented in this encounter Care Teams Drafter Refrigeration Relationship Specialty Start Date End Date Zbigniew Lazaro MD [address] [place] [address] PCP - General 05/20/10 06/05/15 documented as of this encounter
--- OUTSIDE RECORDS SUMMARY | 2024-04-21 02:00 | XMS_ITS | Encounter Summary ---
Author Organization [facility] Address [address] [place] [address] Care Team Providers Care Skill Training Program Coordinator Name Role Phone Unavailable Primary Care Provider Unavailabl e Encounter Details Date Type Department Care Team (Late st Contact Info) Description 01/22/2021 Lab Requisition [facility] Pathology & Laboratory Medicine - [facility] [address] [place] [address] Outr Resulting Lab, Provider Social History Tobacco Use Types Packs/Day Years Used Date Smoking Tobacco: Never Assessed Sex and Gender Information Value Date Recorded Sex Assigned at Not on file Gender Identity Not on file Sexual Orientation Not on file documented as of this encounter Plan of Treatment Not on file documented as of this encounter Procedures Procedure Name Priority Date/Time Associated Diagnosis Comments PSA TOTAL, DIAGNOSTIC Routine 01/22/2021 8:35 EDT documented in this encounter Results * PSA TOTAL, DIAGNOSTIC (01/22/2021 8:35 EDT) PSA 1.1 0.0 - 4.5 ng/mL 01/22/2021 23:52 EDT [facility] Blood VENOUS BLOOD / Unknown 01/22/2021 8:35 EDT 01/22/2021 20:52 EDT Narrative [facility] - 01/22/2021 23:52 EDT NOTE: Serum PSA concentration should not be interpreted as absolute evidence for the presence or absence of malignant disease. Assayed on Siemens ADVIA Centaur XPT using chemiluminescent technology.??Values obtained by using different assay methods cannot be used interchangeably. Provider Outr Resulting Lab CHEMISTRY & BLOOD GAS ORDERABLES [facility] [address] [place] [address] documented in this encounter Visit Diagnoses Not on filedocumented in this encounter
--- OUTSIDE RECORDS SUMMARY | 2024-04-21 02:00 | XMS_ITS | Encounter Summary ---
Author Organization [facility] Address [facility] [place] [address] Care Team Providers Care Director Product Safety Name Role Phone Mi Batista APRN Primary Care Provider [phone] Encounter Details Date Type Department Care Team ([facility] st Contact Info) Description 10/13/2021 1:15 PM EDT Office Visit Dermatology at [address] [address] Laura Rojas MD [facility] [address] [place] [address] SK (seborrheic keratosis) Social History Tobacco Use Types Packs/Day Years Used Date Smoking Tobacco: Never Smokeless Tobacco: Never Alcohol Use Standard Drinks/Week Comments Yes 0 (1 standard drink = 0.6 oz pur e alcohol) Sex and Gender Information Value Date Recorded Sex Assigned at Not on file Gender Identity Not on file Sexual Orientation Not on file documented as of this encounter Progress Notes * Laura Bills MD - 10/13/2021 1:15 PM EDT Images from the original note were not included. 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 Patient returns to clinic today for concerning spot on arm. - Patient reports he has a spot on his left forearm that is bumpy and rough. Has been present for the last couple months. Asymptomatic. Last visit at Dermatology: 04/29/2021 Last visit with this provider: Visit date not found Medications: Reviewed in eD-H Allergies: Reviewed in eD-H Skin Examination: Focused skin examination of the spot on left arm was normal with the exception of the findings below. Assessment/Plan # Seborrheic keratosis - dumont/brown waxy stuck-on papule on his left forearm - Reassured of the benign nature of these lesions - No treatment needed Other: ??? N/A RTC: PRN []Note routed to departmental secretary []Recall placed in scheduling system []Appointment scheduled at checkout Scribe attestation: FOSTER Martinez has performed the documentation for this encounter in the presence of and acting as a scribe for Laura Bills MD. I performed the above scribed service and agree with the accuracy of the documentation in this encounter. Reviewed and signed by: Laura Bills MD Dermatology [facility] documented in this encounter Plan of Treatment Not on file documented as of this encounter Visit Diagnoses Diagnosis SK (seborrheic keratosis) Other seborrheic keratosis documented in this encounter Care Teams Director Product Safety Relationship Specialty Start Date End Date Mi Batista, ROSA PCP - General Family Medicine 02/25/18 08/16/23 documented as of this encounter
--- OUTSIDE RECORDS SUMMARY | 2024-04-21 02:00 | XMS_ITS | Encounter Summary ---
Author Organization [facility] Address [facility] [place] [address] Care Team Providers Care Cartography Technician Name Role Phone Zbigniew Lazaro MD Primary Care Provider + Reason for Visit * Reason Comments Skin Check Encounter Details Date Type Department Care Team (Late st Contact Info) Description 12/26/2014 10:30 AM EDT Office Visit Dermatology at [facility] [address] [place] [address] Frances Ann PA [facility] [address] [place] [address] Minoo Lanier MD [facility] [place] [address] Seborrheic keratosis; Lentigines; Chan angioma; Multiple benign nevi Discharge Disposition: Home Social History Tobacco Use Types Packs/Day Years Used Date Smoking Tobacco: Never Sex and Gender Information Value Date Recorded Sex Assigned at Not on file Gender Identity Not on file Sexual Orientation Not on file documented as of this encounter Progress Notes * Minoo Lanier MD - 12/26/2014 3:14 PM EDT Deep sun dumont. Emphasized sun protection. Patient seen in conjunction with Frances Gaviria PA-C Signed by: Minoo Lanier MD Section of Dermatology [facility] * Frances Gaviria PA - 12/26/2014 10:31 AM EDT DERMATOLOGY - NEW PATIENT NOTE Date of service: 12/26/2014 Alex Sanz : 1950 Dermatology Physician Stone Engraver Note: Frances Gaviria PA-C Chief Complaint Patient presents with ??? Skin Check Mr. Alex Sanz is a 64 y.o. male. This is a new patient to me and to the clinic. Patient is self-referred. HPI: Mr. Sanz presents for a full skin exam. He has no areas of concern today. He uses sunscreen occasionally. He is present today with his . Past Skin History: Actinic Keratosis No known h/o melanoma No known h/o non-melanoma skin cancer No known h/o eczema, atopy No known h/o psoriasis, or other skin disease Medical History: Patient Active Problem List Diagnosis Code ??? 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 ibuprofen (ADVIL;MOTRIN) 800 mg tablet No current facility-administered medications for this visit. 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 Skin: A full skin examination was performed. This includes the head, neck, face and scalp includingbehind the ears. The chest, abdomen, back, and axillae, as well as the arms, hands, palms, fingers.Legs, feet, toes and soles were also examined. Buttocks and breasts were also examined with patientconsent. Genitalia were not examined. Skin Type: 3 Specific skin findings: 1. Multiple, 0.3-0.5cm, medium-brown, evenly-pigmented macules and papules. All with regular pigment pattern on dermoscopy. No pigmented lesions suspicious for melanoma. 2. Multiple 0.2-0.4cm bright red, well-demarcated papules on the trunk 3. Multiple, scattered 0.4-1 cm, brown-black papules/plaques with waxy stuck on appearance 4. Blotchy pigmentation and telangiectasia on sun-exposed skin with subtle yellowish cobblestoned appearance. Diagnosis/Assessment/Treatment Plan: 1. Benign-appearing Nevi - All with even pigmentation and well defined margins. - We will continue to monitor. - Encouraged patient to monitor these lesions for any changes in size, shape, color, or developmentof symptoms, and call if such occurs. - Discussed ABCDE's of melanoma. Handout given. 2. Chan Angiomas - Patient reassured areas are benign in nature. 3. Seborrheic Keratosis - Etiology discussed with patient - Patient reassured lesions are benign in nature - Education material provided 4. Solar Lentigines - The nature of sun-induced photo-aging and skin cancers was discussed. Discussed the importance ofsun avoidance. Sun protection strategies including protective clothing (such as awide-brimmed hat),and the use and frequent reapplication of a broad-spectrum (UVA + UVB) sunscreen with an SPF > 30 were advised. Patient was instructed to observe closely for any skin damage/changes, and call if such occurs. - Discussed warning signs for skin cancer, including the ABCDE's of melanoma. LOS: [id number] RTC in 1 year for FSC, otherwise, PRN Instructed to call with questions or concerns. Note initiated by Gely Joseph LPN I am documenting this encounter acting as the scribe for and in the presence of Frances Gaviria PA-C I performed the above scribed service and agree with the accuracy of the documentation in this encounter. Reviewed and signed by Frances Gaviria PA-C Dermatology [facility] Patient seen in conjunction with/supervision of Attending Physician: Minoo Lanier MD Section of Dermatology [facility] documented in this encounter Plan of Treatment Not on file documented as of this encounter Visit Diagnoses Diagnosis Seborrheic keratosis Other seborrheic keratosis Lentigines Other dyschromia Chan angioma Nevus, non-neoplastic Multiple benign nevi Benign neoplasm of skin, site unspecified documented in this encounter Care Teams Cartography Technician Relationship Specialty Start Date End Date Zbigniew Lazaro MD [address] [place] [address] PCP - General 05/20/10 06/05/15 documented as of this encounter
--- OUTSIDE RECORDS SUMMARY | 2024-04-21 02:00 | XMS_ITS | Encounter Summary ---
Author Organization [facility] [place] [address] Care Team Providers Care Solar Sales Energy Advisor Name Role Phone IsraelPapito hernandez Primary Care Provider [phone] Encounter Details Date Type Department Care Team (Latest Contact Info) Description 02/14/2018 8:58 PM EDT - 02/14/2018 11:59 PM EDT Hospital [place] [address] Discharge Disposition: Home Social History Tobacco Use [...] Sig Dispensed Refills Start Date End Date aspirin 325 mg Tablet Take 325 mg by mouth daily. documented as of this encounter Plan of Treatment Not on file documented as of this encounter Procedures Procedure Name Priority Date/Time Associated Diagnosis Comments SURGICAL PATHOLOGY REPORT Routine 02/14/2018 4:14 PM EDT documented in this encounter Results * Surgical Pathology Report (02/14/2018 4:14 PM EDT) Final Diagnosis [id number] ? Location: [facility] The signing pathologist has (i) examined the relevant preparation(s) for the specimen(s) and (ii) rendered or confirmed the diagnosis(es). . ?Surgical Pathology DIAGNOSIS A - Ascending colon, ?? biopsy: Colonic mucosa within normal limits. B - Transverse colon, ?? biopsy: Colonic mucosa within normal limits. C - Descending colon, ?? biopsy: Congested colonic mucosa with scattered pigmented histiocytes. D - Sigmoid colon, ??biopsy: Congested colonic mucosa with scattered pigmented histiocytes. E - Rectum, ??biopsy: Colonic mucosa with focal active colitis. See discussion #1. CR-PX Electronically signed by: ??Awilda GERMAN PhD, Gen Manriquez Verified: ??02/17/2018 ?Pathologist Performed at: ??-[facility] Dept. of Pathology, [place], [place] DISCUSSION 1. ??The findings are non-specific. The differential diagnosis includes infection, drug, mechanical, diverticulosis and incipient inflammatory bowel disease (IBD). Clinical correlation is recommended. CLINICAL INFORMATION Specimen Submitted: A - Ascendinig colon bx B - Transverse colon bx C - Descending colon bx D - Sigmoid bx E - Rectum bx Report to: Maria Dolores Coles Clinical History and Diagnosis: Chronic diarrhea Referring Identifier: ?(not provided) SPECIMEN PROCESSING A - Labeled/Fixative: Ascending colon BX, formalin. Quantity/Size: Two, 0.3 cm. Tissue Description: Polypoid dumont soft tissues. . SPECIMEN PROCESSING Sections/Processi ng: (T1) B - Labeled/Fixative: Transverse colon BX, formalin. Quantity/Size: Two, 0.3 cm. Tissue Description: Polypoid dumont soft tissues . Sections/Processi ng: (T1) C - Labeled/Fixative: Descending colon BX, formalin. Quantity/Size: Two, 0.2 cm. Tissue Description: Polypoid dumont soft tissues. Sections/Processi ng: (T1) D - Labeled/Fixative: Sigmoid BX, formalin. Quantity/Size: Two, 0.3 cm. Tissue Description: Polypoid dumont soft tissues. Sections/Processi ng: (T1) E - Labeled/Fixative: Rectum BX, formalin. Quantity/Size: Two, 0.2 cm. Tissue Description: Polypoid dumont soft tissues. Sections/Processi ng: (T1) ??shb 02/17/2018 10:[address] [facility] GI Biopsy 02/14/2018 4:14 PM EDT 02/14/2018 4:14 PM EDT GI Biopsy 02/14/2018 4:14 PM EDT 02/14/2018 4:14 PM EDT GI Biopsy 02/14/2018 4:14 PM EDT 02/14/2018 4:14 PM EDT GI Biopsy 02/14/2018 4:14 PM EDT 02/14/2018 4:14 PM EDT GI Biopsy 02/14/2018 4:14 PM EDT 02/14/2018 4:14 PM EDT Mike Perla DO PATHOLOGY/CYT OLOGY ORDERABLES Performing Organization Address City/State/[facility] Co de Phone Number [facility] [place] [address] documented in this encounter Visit Diagnoses Not on filedocumented in this encounter Care Teams Solar Sales Energy Advisor Relationship Specialty Start Date End Date Papito Wood DO [address] [place] [address] PCP - General Family Medicine 06/06/15 02/24/18 documented as of this encounter
[2024-04-21] MEDS: Inhaler, Assist Device 1 EACH MC (11:05)
[2024-04-21] MEDS: Levalbuterol HFA 15 GM INH 4 PUFF IH (11:06)
--- NOTE | 2024-04-22 10:27 | W.PFT ---
Date of service: 04/21/24 Time of Service: 10:08 Pulmonary Function Test Result Indications: ILD Interpretation Spirometry: No airflow limitation. Lung Volumes: Normal lung volumes Diffusion Capacity: Diminished diffusion Airway Pressure: Normal airways resistance Impression Isolated diffusion deficit. This may reflect early ILD, emphysema or pulmonary vascular disease. Clinical Correlation therefore is recommended.
== END 2024-04-21 02:00 | disposition home or self-care (01) ==
LOC: RT 01:59
PROVIDERS: PCP Nurse Practitioner Family; Visit Provider Physician Assistant Surgical
DX: J84.9 Interstitial pulmonary disease, unspecified (principal)
CPT/HCPCS: 94010; 94726; 94729

== ENCOUNTER → 2025-05-08 08:36 | Outpatient (BNVA) | payer MEDICARE, OTHER, SELFPAY | PROVIDERS: Referring Provider Nurse Practitioner Family; Visit Provider Physician Assistant Surgical | DX: J84.9 Interstitial pulmonary disease, unspecified (principal); R91.1 Solitary pulmonary nodule; Z87.891 Personal history of nicotine dependence | CPT/HCPCS: 99214 ==